=== PATIENT | male | born 1985 | race Caucasian/White ===

== ENCOUNTER 2017-02-07 12:30 | Emergency (ER) | payer MEDICAID, SELFPAY, OTHER ==
[2017-02-07] MEDS: NS 1,000 ML IV ×2 (15:45)
[2017-02-07 15:59] LABS: BASO % 0.2 % (0.0-1.0); EOS % 0.3 % (0.0-3.0); IMMATURE GRANULOCYTE % 0.2 % (0-0); LYMPH # 1.8 10^3/uL (1.5-4.5); LYMPH % 20.3 % (24.0-44.0); MEAN CORPUSCULAR HEMOGLOBIN 30.4 pg (27.0-33.0); MEAN CORPUSCULAR HGB CONC 34.7 g/dl (32.0-36.5); MEAN CORPUSCULAR VOLUME 87.5 fl (80.0-96.0); MONO # 0.7 10^3/uL (0.0-0.8); MONO % 8.1 % (0.0-5.0); NEUTROPHILS # 6.3 10^3/uL (1.8-7.7); NEUTROPHILS % 70.9 % (36.0-66.0); PLATELET COUNT, AUTOMATED 326 10^3/uL (150-450); RED CELL DISTRIBUTION WIDTH 12.1 % (11.5-14.5); WHITE BLOOD COUNT 8.9 10^3/uL (4.0-10.0)
[2017-02-07 16:06] LABS: AMORPHOUS SEDIMENT RFX SMALL (NEGATIVE); KETONE, URINE AUTO RFX NEGATIVE (NEGATIVE); LEUKOCYTE ESTERASE UR AUTO RFX NEGATIVE (NEGATIVE); NITRITE, URINE AUTO RFX NEGATIVE (NEGATIVE); RBC, URINE AUTO RFX 2 /HPF (0-3); SQUAM EPITHELIAL CELL UR AURFX 0 /HPF (0-6); WBC, URINE AUTO RFX 0 /HPF (0-3)
[2017-02-07 16:22] LABS: ALBUMIN 4.9 GM/DL (3.2-5.2); ALBUMIN/GLOBULIN RATIO 1.48 (1.00-1.93); ALKALINE PHOSPHATASE 70 U/L (45-117); ALT/SGPT 18 U/L (12-78); ANION GAP 5 MEQ/L (8-16); AST/SGOT 15 U/L (7-37); BILIRUBIN,DIRECT 0.3 MG/DL (0.0-0.2); BILIRUBIN,TOTAL 2.1 MG/DL (0.2-1.0); BLOOD UREA NITROGEN 14 MG/DL (7-18); CALCIUM LEVEL 9.2 MG/DL (8.5-10.1); CARBON DIOXIDE LEVEL 31 MEQ/L (21-32); CHLORIDE LEVEL 105 MEQ/L (98-107); CREATININE FOR GFR 0.99 MG/DL (0.70-1.30); GLOMERULAR FILTRATION RATE > 60.0 (>60); GLUCOSE, FASTING 80 MG/DL (70-105); POTASSIUM SERUM 4.4 MEQ/L (3.5-5.1); SODIUM LEVEL 141 MEQ/L (136-145); TOTAL PROTEIN 8.2 GM/DL (6.4-8.2)
== END 2017-02-07 17:40 | disposition home or self-care (01) ==
LOC: M ED 12:30
DX: R17 Unspecified jaundice (principal); R10.13 Epigastric pain; F17.210 Nicotine dependence, cigarettes, uncomplicated
CPT/HCPCS: 76705

== ENCOUNTER → 2017-08-23 | Outpatient (CLI) | payer OTHER | LOC: M OUTALCOH 09:32 | DX: Z13.9 Encounter for screening, unspecified (principal) ==

== ENCOUNTER 2017-08-31 14:27 | Outpatient (RCR) | payer OTHER | END 2017-09-12 | LOC: M OUTALCOH 09-05 16:00 | DX: F12.20 Cannabis dependence, uncomplicated (principal); Z72.0 Tobacco use ==

== ENCOUNTER 2017-10-17 16:00 | Outpatient (RCR) | payer OTHER | END 2017-11-12 | LOC: M OUTALCOH 10-23 16:00 | DX: F12.20 Cannabis dependence, uncomplicated (principal); Z72.0 Tobacco use ==

== ENCOUNTER 2017-11-13 11:08 | Outpatient (RCR) | payer OTHER | END 2017-12-13 | LOC: M OUTALCOH 11-27 09:00 | DX: F12.20 Cannabis dependence, uncomplicated (principal); Z72.0 Tobacco use ==

== ENCOUNTER 2022-03-06 16:18 | Emergency (ER) | payer OTHER, SELFPAY ==
[~2022-03-06 16:18] MED LIST: ZOFR4TAB14 PO
[2022-03-06 16:45] VITALS: BP 151/99
[2022-03-06] MEDS ORDERED: HOME MED LIST COMPLETE! XX SCH (18:15)
== END 2022-03-06 20:44 | disposition home or self-care (01) ==
LOC: M ED 17:00
DX: F43.0 Acute stress reaction (principal); R45.1 Restlessness and agitation

== ENCOUNTER 2023-10-17 16:34 | Emergency (ER) | payer SELFPAY ==
[~2023-10-17] VITALS: Ht 172.7 cm; Wt 68.2 kg
[2023-10-17 17:39] LABS: HEMATOCRIT 46.8 % (42.0-52.0); HEMOGLOBIN 16.3 g/dl (13.5-17.5); MEAN CORPUSCULAR HEMOGLOBIN 31.7 pg (27.0-33.0); MEAN CORPUSCULAR HGB CONC 34.8 g/dl (32.0-36.5); MEAN CORPUSCULAR VOLUME 91.1 fl (80.0-96.0); PLATELET COUNT, AUTOMATED 361 10^3/uL (150-450); RED BLOOD COUNT 5.14 10^6/uL (4.30-6.10)
[2023-10-17 18:01] LABS: ETHYL ALCOHOL (ETHANOL) 0.006 % (0.000-0.010)
[2023-10-17 18:03] LABS: ALBUMIN 4.2 G/DL (3.2-5.2); ALKALINE PHOSPHATASE 85 U/L (46-116); ALT/SGPT 11 U/L (7.0-40); AST/SGOT 14 U/L (<34); BILIRUBIN,DIRECT 0.3 MG/DL (<0.4); BILIRUBIN,TOTAL 0.9 MG/DL (0.3-1.2); BLOOD UREA NITROGEN 17 MG/DL (9-23); CALCIUM LEVEL 9.2 MG/DL (8.5-10.1); CARBON DIOXIDE LEVEL 30 MMOL/L (20-31); CHLORIDE LEVEL 106 MMOL/L (98-107); CREATININE FOR GFR 0.98 MG/DL (0.70-1.30); GLOMERULAR FILTRATION RATE > 60.0 (>60); GLUCOSE, FASTING 109 MG/DL (60-100); POTASSIUM SERUM 4.3 MMOL/L (3.5-5.1); SALICYLATE LEVEL < 3.0 MG/DL (<30); SODIUM LEVEL 140 MMOL/L (136-145)
[2023-10-17 18:05] LABS: THYROID STIMULATING HORMONE 2.105 uIU/ML (0.55-4.78)
[2023-10-17 18:41] VITALS: BP 133/75; TEMP 98.5; O2SAT 98
[2023-10-17 20:13] LABS: BARBITURATES URINE NEGATIVE (NEGATIVE); BENZODIAZEPINES URINE NEGATIVE (NEGATIVE); METHADONE URINE NEGATIVE (NEGATIVE); OPIATES URINE NEGATIVE (NEGATIVE); PHENCYCLIDINE URINE NEGATIVE (NEGATIVE)
[2023-10-17 20:18] LABS: AMPHETAMINES LEVEL URINE POSITIVE (NEGATIVE); CANNABINOIDS URINE POSITIVE (NEGATIVE); COCAINE METABOLITE URINE POSITIVE (NEGATIVE)
[2023-10-17] MEDS ORDERED: HOME MED LIST COMPLETE! XX SCH (22:05)
== END 2023-10-17 23:20 | disposition home or self-care (01) ==
LOC: M ED 16:34
DX: F43.0 Acute stress reaction (principal)

== ENCOUNTER 2024-05-24 17:16 | Emergency (ER) | payer SELFPAY ==
[~2024-05-24] VITALS: Ht 172.7 cm; Wt 72.0 kg
[2024-05-24 17:19] VITALS: BP 127/79; TEMP 98.1; O2SAT 98
== END 2024-05-24 19:09 | disposition left against medical advice (07) ==
LOC: M ED 17:16
DX: Z53.21 Procedure and treatment not carried out due to patient leaving prior to being seen by health care provider (principal)

== ENCOUNTER 2024-09-01 13:25 | Emergency (ER) | payer MEDICAID, OTHER, SELFPAY ==
[~2024-09-01] VITALS: Ht 172.7 cm; Wt 65.6 kg
[2024-09-01 13:30] VITALS: BP 113/88; TEMP 97.7; O2SAT 99
== END 2024-09-01 15:35 | disposition left against medical advice (07) ==
LOC: M ED 13:25
DX: Z53.21 Procedure and treatment not carried out due to patient leaving prior to being seen by health care provider (principal)